=== PATIENT | female | born 1985 | race Caucasian/White ===

== ENCOUNTER → 2016-09-09 | Outpatient (CLI) | payer MEDICAID ==
[~2016-09-09] MED LIST: BACTRIM DS 8001 TAB PO; ULTRAM 50 MG TA50 MG PO
[2016-09-09 17:02] LABS: HEMOGLOBIN 15.6 g/dL (12.2-16.2)
[2016-09-09 19:15] LABS: BUN 16 mg/dL (7-18)
[2016-09-09 19:17] LABS: GFR (ESTIMATED) 98 ML/MIN (59-)
== END ==
LOC: LAB 16:49
PROVIDERS: Physician Assistant
DX: I10 Essential (primary) hypertension (principal)